=== PATIENT | female | born 1990 | race Two or more races ===

== ENCOUNTER 2020-11-14 03:46 | Emergency (ER) | payer OTHER ==
[~2020-11-14] VITALS: Ht 165.1 cm; Wt 102.1 kg
== END 2020-11-14 09:00 | disposition home or self-care (01) ==
LOC: ER 03:46
DX: O03.6 Delayed or excessive hemorrhage following complete or unspecified spontaneous abortion (principal); Z03.818 Encounter for observation for suspected exposure to other biological agents ruled out